=== PATIENT | female | born 1975 | race African-American/Black ===

== ENCOUNTER 2017-02-24 17:36 | Emergency (ER) | payer OTHER ==
[~2017-02-24] VITALS: Ht 172.7 cm; Wt 104.3 kg
[2017-02-24 18:01] VITALS: BP 140/83
[2017-02-24] MEDS ORDERED: HYDR-2758 PO (18:31)
[2017-02-24] MEDS ORDERED: [UNRECOGNIZED DRUG - CODE] PO (18:31)
--- NOTE | 2017-02-24 18:31 | PHYS DOC ---
Past History Past Medical History: No Pertinent History Past Surgical History: Other Smoking: Cigarettes, Greater than 1 pack/day Alcohol Use: None Drug Use: Amphetamine, Methamphetamine Adult General Chief Complaint Chief Complaint: DENTAL PROBLEM HPI HPI Pleasant 41-year-old female with a history of methamphetamine abuse now clean and sober who presents with dental issue that began 3 weeks ago. She had a tooth #7 in the front of her incisors traction to the enamel. She's had increasing pain and local tenderness to palpation with eating hot and cold foods. She was seen by another provider earlier this week placed on clindamycin. Unfortunately as she began to take that medication she began to break out in hives. So she stopped the medication. She was not able to follow- up with her dentist and she has continued to use her pain medication to treat her symptoms. She has no fevers, no neck pain, no neck swelling. Patient has no change in voice no problems with opening her jaw. Patient says the pain is typical for her and she has follow-up already scheduled for her dental issues she does smoke she does not use drugs anymore. Review of Systems Review of Systems Constitutional: Denies fever or chills [] Eyes: Denies change in visual acuity, redness, or eye pain [] HENT: Denies nasal congestion or sore throat [] Respiratory: Denies cough or shortness of breath [] Cardiovascular: No additional information not addressed in HPI [] GI: Denies abdominal pain, nausea, vomiting, bloody stools or diarrhea [] : Denies dysuria or hematuria [] Musculoskeletal: Denies back pain or joint pain [] Integument: Denies rash or skin lesions [] Neurologic: Denies headache, focal weakness or sensory changes [] Allergies Allergies Allergies Coded Allergies Type Severity Reaction Last Updated Verified Penicillins Allergy Intermediate RASH 02/24/17 Yes clindamycin Allergy Intermediate RASH 02/24/17 Yes tramadol Allergy Intermediate N/V 02/24/17 Yes Physical Exam Physical Exam Of the vital signs recorded on chart within normal limits. Constitutional: Well developed, well nourished, no acute distress, non-toxic appearance. [] HENT: Normocephalic, atraumatic, bilateral external ears normal, oropharynx moist, no oral exudates, nose normal. He is very poor dentition there are several teeth that are seen to be . There is a fracture through the enamel of tooth #7 with exposed dentin it seems to be necrotic. There is no soft tissue or along the dental line no gingivitis. No soft tissue swelling or buccal cellulitis. [] Neck: Normal range of motion, no tenderness, supple, no stridor. [] Cardiovascular:Heart rate regular rhythm, no murmur [] Lungs & Thorax: Bilateral breath sounds clear to auscultation [] Skin: Warm, dry, no erythema, no rash. [] Neurologic: Alert and oriented X 3, speech is normal Psychologic: sHe is somewhat anxious and uncomfortable as she is out of her medications. Current Patient Data Vital Signs Vital Signs Date Time Temp Pulse Resp B/P (MAP) Pulse Ox O2 Delivery O2 Flow Rate FiO2 02/24/17 18:01 99.1 77 20 99 Room Air EKG EKG [] Radiology/Procedures Radiology/Procedures [] Course & Med Decision Making Course & Med Decision Making Pertinent Labs and Imaging studies reviewed. (See chart for details) She presents with obvious dental caries needing complete antibiotic coverage as well as some pain medications to get to her dentist this Tuesday. She is allergic to penicillins and clindamycin we will attempt to treat her with erythromycin although that is not optimal coverage. [] Dragon Disclaimer Dragon Disclaimer This chart was dictated in whole or in part using Voice Recognition software in a busy, high-work load, and often noisy Emergency Department environment. It may contain unintended and wholly unrecognized errors or omissions. Departure Departure: Impression: Primary Impression: Dental caries Additional Impression: History of medication noncompliance Disposition: HOME, SELF-CARE Condition: STABLE Referrals: GAYLE ROUSSEAU (PCP) Patient Instructions: Dental Caries Additional Instructions: My discharge plan Follow up: In addition patient is asked to followup with their primary doctor, within a week for followup examination and to address patient's ongoing medical conditions. Patient is advised that in the Emergency Department primary complaints are addressed and only in light of known signs and symptoms. Patient should return immediately to the emergency department if new signs and symptoms develop or patient's condition worsens in any way. At time of discharge patient was in stable condition and had verbalized understanding of the discharge instructions. Scripts Hydrocodone Bit/Acetaminophen (HYDROCODONE-APAP 5-325 ) 1 Each Tablet 1 TAB PO PRN Q6HRS Y for PAIN for 5 Days, #10 TAB 0 Refills Prov: ANNAMARIE WALTER MD 02/24/17 Erythromycin Base (SHERRIE-TAB) 500 Mg Tablet. 500 MG PO QID for 7 Days, #28 TAB Prov: ANNAMARIE WALTER MD 02/24/17 Problem Qualifiers ANNAMARIE WALTER MD Feb 24, 2017 18:31
== END 2017-02-24 18:37 | disposition home or self-care (01) ==
LOC: ER 17:36
DX: K02.9 Dental caries, unspecified (principal); Z91.14 Patient's other noncompliance with medication regimen; F15.10 Other stimulant abuse, uncomplicated; F17.210 Nicotine dependence, cigarettes, uncomplicated; Z88.0 Allergy status to penicillin; Z88.1 Allergy status to other antibiotic agents; Z88.6 Allergy status to analgesic agent
CPT/HCPCS: 99283

== ENCOUNTER 2017-03-25 11:01 | Emergency (ER) | payer OTHER ==
[~2017-03-25] VITALS: Ht 172.7 cm; Wt 103.0 kg
[~2017-03-25 11:01] MED LIST: HYDR-2758 PO; [UNRECOGNIZED DRUG - CODE] PO
[2017-03-25] MEDS ORDERED: IV NORMAL SALINE 1,000ML 1,000 ML IV SCH (11:20)
[2017-03-25 12:14] LABS: BASO % 0 % (0-3); EOS # 0.1 x10^3/uL (0.0-0.7); EOS % 3 % (0-3); HEMATOCRIT 40.7 % (36.0-47.0); LYMPH # 1.3 x10^3/uL (1.0-4.8); LYMPH % 32 % (24-48); MEAN CORPUSCULAR HEMOGLOBIN 29 pg (25-35); MEAN CORPUSCULAR HGB CONC 34 g/dL (31-37); MEAN CORPUSCULAR VOLUME 86 fL (79-100); MONO # 0.3 x10^3/uL (0.0-1.1); MONO % 8 % (0-9); NEUT # 2.4 x10^3uL (1.8-7.7); NEUT % 57 % (31-73); PLATELET COUNT 228 x10^3/uL (140-400); RED BLOOD COUNT 4.75 x10^6/uL (3.50-5.40); RED CELL DISTRIBUTION WIDTH 14.6 % (11.5-14.5); WHITE BLOOD COUNT 4.2 x10^3/uL (4.0-11.0)
[2017-03-25 12:27] LABS: ALBUMIN 3.4 g/dL (3.4-5.0); CALCIUM 8.8 mg/dL (8.5-10.1); CREATININE 1.3 mg/dL (0.6-1.0); DIRECT BILIRUBIN 0.1 mg/dL (0.0-0.2); GFR 55.2; POTASSIUM 3.7 mmol/L (3.5-5.1); TOTAL BILIRUBIN 0.4 mg/dL (0.2-1.0); TOTAL PROTEIN 7.2 g/dL (6.4-8.2)
[2017-03-25] MEDS ORDERED: FAMO-63 PO (12:33)
[2017-03-25] MEDS ORDERED: ONDA4TAB7 PO (12:33)
--- NOTE | 2017-03-25 12:34 | PHYS DOC ---
Past History Past Medical History: Anxiety, Other Past Surgical History: Hysterectomy, Other Smoking: Cigarettes, Greater than 1 pack/day Alcohol Use: Occasionally Drug Use: None, Amphetamine, Methamphetamine Adult General Chief Complaint Chief Complaint: ABDOMINAL PAIN HPI HPI 41-year-old female presenting to the emergency department today with an epigastric abdominal pain and nonbilious nonbloody vomiting over the past week. She denies any bloody stools. She denies fevers or chills. The pain is mild intermittent nonradiating without alleviating factors. Review of systems is negative for diarrhea constipation. She denies chest pain or shortness of breath. All other review of systems is negative unless otherwise noted in history of present illness. ED course: 32-year-old female presenting with epigastric abdominal pain. Upon arrival the patient is afebrile with a normal heart rate. Abdominal exam shows Soft nontender abdomen without rebound tenderness or guarding present. Negative McBurneys point. Negative Fishman sign. No ecchymosis present. Otherwise the patient has an unremarkable examination. Blood work obtained. IV fluids administered. CT the abdomen pelvis obtained. Unfortunately the patient was unable to make a urine specimen for us after being here for 4 hours and 30 minutes. She was asked multiple times in the emergency department to provide urine however the patient refuses. We offered to provide straight catheterization to obtain urine specimen which the patient refuses. CT does show possible signs of cystitis which I explained to the patient. The patient states "I don't have a bladder infection because my pain is in my upper belly." I explained to her that this is not always the case. She demonstrates understanding however continues to refuse for urine to be obtained. It is probable that we asked for urine 10 times. The patient does not desire impaired treatment, nor do I believe that this would be in the patient's best interest. It would be better to have a urinalysis to identify whether the patient has a urinary tract infection. I informed the patient of their right to a medical screening exam and any treatment and/or stabilization that may be necessary regardless of their ability to pay. The patient appears to have intact insight, judgment, and reason. In my opinion, this patient has the capacity to make decisions. I felt that the patient had medical decision making capabilities. The patient presented with [abd pain] and I am concerned that this could be [a UTI]. My initial plan prior to the pt expressing the desire to leave was [ obtain a urine specimen]. I explained the risk of and disability to the patient in plain language which they were able to demonstrate in their own words verbal understanding. Specifically, I explained the risk of [infection, disability, ]. I discussed the limitations of the workup thus far included but were not limited to [not having urinary specimen]. The pt has verbalized understanding of my concerns. I offered alternatives to the therapy including providing straight catheterization. I recommended the pt follow up with her pcp. I explained that at any time if the patient changed their mind, we are always open and would be happy to have them back. The patient refused further care and then left against medical advice. Review of Systems Review of Systems SEE ABOVE. Current Medications Current Medications Current Medications Medications (Trade) Dose Ordered Sig/Dominik Start Time Stop Time Status Last Admin Dose Admin Sodium Chloride 1,000 ml @ 1,000 mls/hr Q1H 03/25/17 11:20 03/25/17 12:19 DC Allergies Allergies Allergies Coded Allergies Type Severity Reaction Last Updated Verified Penicillins Allergy Intermediate RASH 02/24/17 Yes clindamycin Allergy Intermediate RASH 02/24/17 Yes tramadol Allergy Intermediate N/V 02/24/17 Yes Physical Exam Physical Exam SEE ABOVE Constitutional: Well developed, well nourished, no acute distress, non-toxic appearance. [] HENT: Normocephalic, atraumatic, bilateral external ears normal, oropharynx moist, no oral exudates, nose normal. [] Eyes: PERRLA, EOMI, conjunctiva normal, no discharge. [] Neck: Normal range of motion, no tenderness, supple, no stridor. [] Cardiovascular:Heart rate regular rhythm, no murmur [] Lungs & Thorax: Bilateral breath sounds clear to auscultation [] Abdomen: Bowel sounds normal, soft, no tenderness, no masses, no pulsatile masses. [] Skin: Warm, dry, no erythema, no rash. [] Back: No tenderness, no CVA tenderness. [] Extremities: No tenderness, no cyanosis, no clubbing, ROM intact, no edema. [] Neurologic: Alert and oriented X 3, normal motor function, normal sensory function, no focal deficits noted. [] Psychologic: Affect normal, judgement normal, mood normal. [] Current Patient Data Vital Signs Vital Signs Date Time Temp Pulse Resp B/P (MAP) Pulse Ox O2 Delivery O2 Flow Rate FiO2 03/25/17 11:05 97.7 88 22 98 Room Air Lab Results Laboratory Tests Test 03/25/17 11:50 White Blood Count 4.2 x10^3/uL (4.0-11.0) Red Blood Count 4.75 x10^6/uL (3.50-5.40) Hemoglobin 14.0 g/dL (12.0-15.5) Hematocrit 40.7 % (36.0-47.0) Mean Corpuscular Volume 86 fL (79-100) Mean Corpuscular Hemoglobin 29 pg (25-35) Mean Corpuscular Hemoglobin Concent 34 g/dL (31-37) Red Cell Distribution Width 14.6 % (11.5-14.5) H Platelet Count 228 x10^3/uL (140-400) Neutrophils (%) (Auto) 57 % (31-73) Lymphocytes (%) (Auto) 32 % (24-48) Monocytes (%) (Auto) 8 % (0-9) Eosinophils (%) (Auto) 3 % (0-3) Basophils (%) (Auto) 0 % (0-3) Neutrophils # (Auto) 2.4 x10^3uL (1.8-7.7) Lymphocytes # (Auto) 1.3 x10^3/uL (1.0-4.8) Monocytes # (Auto) 0.3 x10^3/uL (0.0-1.1) Eosinophils # (Auto) 0.1 x10^3/uL (0.0-0.7) Basophils # (Auto) 0.0 x10^3/uL (0.0-0.2) EKG EKG [] Radiology/Procedures Radiology/Procedures [] Course & Med Decision Making Course & Med Decision Making Pertinent Labs and Imaging studies reviewed. (See chart for details) [] Dragon Disclaimer Dragon Disclaimer This electronic medical record was generated, in whole or in part, using a voice recognition dictation system. Departure Departure: Impression: Primary Impression: Epigastric abdominal pain Disposition: 01 HOME, SELF-CARE Condition: STABLE Referrals: GAYLE ROUSSEAU (PCP) Patient Instructions: Abdominal Pain Additional Instructions: Thank you for allowing us to participate in your care today. Followup with your primary care physician in 3 days if your symptoms do not improve. Call your Primary Doctor tomorrow and inform them of your visit today. If you do not have a primary care provider you can ask for a list of our primary care providers. Return to the emergency department you have any new or concerning findings. This should be evaluated by the primary care physician and any necessary consulting services for continued management within a few days after discharge. Return to emergency room if you have any new or concerning symptoms including but not limited to fever, chills, nausea, vomiting, intractable pain, any new rashes, chest pain, shortness of air, uncontrolled bleeding, difficulty breathing, and/or vision loss. Scripts Famotidine (PEPCID) 20 Mg Tablet 1 TAB PO BID, #10 TAB 0 Refills Prov: CRISTO DAVIS MD 03/25/17 Ondansetron Hcl (ZOFRAN) 4 Mg Tablet 1 TAB PO PRN Q6HRS Y for NAUSEA, #6 TAB Prov: CRISTO DAVIS MD 03/25/17 CRISTO DAVIS MD Mar 25, 2017 12:34
--- NOTE | 2017-03-25 12:34 | RAD ---
CT of the abdomen and pelvis without contrast 03/25/2017 Indication: Abdominal pain, epigastric pain. Diarrhea. Comparison study: CT of the abdomen and pelvis without contrast February 15, 2009 Technique: Multidetector CT imaging of the abdomen and pelvis was performed without the administration of IV contrast Findings: Liver, gallbladder, spleen, and right adrenal gland are unremarkable. There is a left adrenal adenoma similar to prior study. Kidneys are unremarkable in appearance. Pancreas is grossly normal in appearance. There is no evidence of bowel obstruction. No acute inflammatory change involving the bowel is identified. Evaluation of the bowel somewhat limited without IV or enteric contrast. The appendix is visualized and normal in appearance. Evaluation of the bladder is limited secondary to predominantly decompressed state. Bladder wall appears mildly thickened which is nonspecific. Correlate with clinical and/or laboratory evidence of cystitis. No evidence of acute osseous abnormality is seen. Impression: 1. Nonspecific mild bladder wall thickening. This could be due to partially decompressed state. Cystitis cannot be completely excluded. Close clinical findings. 2. No other acute intra-abdominal abnormality is seen. PQRS Compliance Statement: One or more of the following individualized dose reduction techniques were utilized for this examination: 1. Automated exposure control 2. Adjustment of the mA and/or kV according to patient size 3. Use of iterative reconstruction technique
[2017-03-25] MEDS ORDERED: LIDO:MAALOX 1:1 20 ML SINGLE DOSE PO ONE (14:15)
[2017-03-25] MEDS ORDERED: FAMOTIDINE 20 MG/2 ML VIAL IVP ONE (14:15)
[2017-03-25 15:35] VITALS: BP 124/78
== END 2017-03-25 15:49 | disposition home or self-care (01) ==
LOC: ER 11:01
DX: R10.13 Epigastric pain (principal); R11.10 Vomiting, unspecified; F41.9 Anxiety disorder, unspecified; F17.210 Nicotine dependence, cigarettes, uncomplicated; F15.10 Other stimulant abuse, uncomplicated; Z88.0 Allergy status to penicillin; Z90.710 Acquired absence of both cervix and uterus; Z88.1 Allergy status to other antibiotic agents; Z88.6 Allergy status to analgesic agent
CPT/HCPCS: 36415; 74176; 80048; 80076; 85025; 96361; 96374; 99285; S0028; J7030

== ENCOUNTER 2017-04-22 14:35 | Emergency (ER) | payer SELFPAY ==
[~2017-04-22] VITALS: Ht 172.7 cm; Wt 103.0 kg
[~2017-04-22 14:35] MED LIST changes: +FAMO-63 PO; +ONDA4TAB7 PO
[2017-04-22] MEDS ORDERED: TETRACAINE 0.5% OPHTH SOLUTION 4ML BOTTLE. OD ONE (15:30)
[2017-04-22] MEDS ORDERED: FLUORESCEIN 1MG EYE STRIP. OD ONE (15:30)
--- NOTE | 2017-04-22 16:11 | PHYS DOC ---
Past History Past Medical History: Anxiety, Other Past Surgical History: Hysterectomy, Other Smoking: Cigarettes, Greater than 1 pack/day Alcohol Use: Occasionally Drug Use: None, Amphetamine, Methamphetamine Adult General Chief Complaint Chief Complaint: EYE PROBLEMS HPI HPI Patient is a 42 year old female who presents with red eye. The patient reports 3 day history of burning pain to her right eye associated with red eye, clear drainage, light sensitivity. Vision is blurred in this eye. She denies foreign body or abrasion. Denies fevers/chills, headache. She does not wear contact lenses. She reports previous history of multiple episodes of similar symptoms, unsure of her diagnosis but she had to use steroid eye drops. She states that she is supposed to have workup for autoimmune disease because of this condition. She usually sees Dr. Islas in the eye clinic but could not afford to go there today because of her insurance status. Review of Systems Review of Systems Constitutional: Denies fever or chills Eyes: Reports painful red eye HENT: Denies nasal congestion or sore throat Respiratory: Denies cough Cardiovascular: Denies chest pain GI: Denies abdominal pain, nausea, vomiting Musculoskeletal: Denies back pain or joint pain Integument: Denies rash Neurologic: Denies headache All other systems were reviewed and found to be within normal limits, except as documented in this note. Current Medications Current Medications Current Medications Medications (Trade) Dose Ordered Sig/Dominik Start Time Stop Time Status Last Admin Dose Admin Acetaminophen/ Hydrocodone Bitart (Lortab 5/325) 1 tab 1X ONCE 04/22/17 16:15 04/22/17 16:16 Fluorescein Sodium (Ful-Talya 1mg) 1 strip 1X ONCE 04/22/17 15:30 04/22/17 15:31 DC 04/22/17 15:30 1 STRIP Prednisolone Acetate (Pred Forte) 1 drop 1X ONCE 04/22/17 16:15 04/22/17 16:16 Tetracaine HCl (Tetracaine) 1 drop 1X ONCE 04/22/17 15:30 04/22/17 15:31 DC 04/22/17 15:30 1 DROP Allergies Allergies Allergies Coded Allergies Type Severity Reaction Last Updated Verified Penicillins Allergy Intermediate RASH 02/24/17 Yes clindamycin Allergy Intermediate RASH 02/24/17 Yes tramadol Allergy Intermediate N/V 02/24/17 Yes Physical Exam Physical Exam Constitutional: obese, tearful, non-toxic appearance. HENT: Normocephalic, atraumatic, bilateral external ears normal, oropharynx moist, nose normal. Eyes: PERRLA, EOMI, no pain with eye movement. pain in right eye with bilateral pupil exam. diffusely injected conjunctiva. no proptosis, periorbital cellulitis. no evidence of corneal abrasion with fluorescein stain , negative Lisandro sign. patient poorly tolerated slit lamp exam, unable to visualize cell/flare. IOP was 15 mmHg in the right eye. Cardiovascular: no edema. Lungs & Thorax: no respiratory distress. Abdomen: nondistended. Skin: Warm, dry, no erythema, no rash. Extremities: No deformity Neurologic: Alert and oriented X 3 EKG EKG [] Radiology/Procedures Radiology/Procedures [] Course & Med Decision Making Course & Med Decision Making Pertinent Labs and Imaging studies reviewed. (See chart for details) The patient presents with red painful eye. Gave norco for pain as she was very tearful & uncomfortable. Applied tetracaine. Poorly tolerated slit lamp exam, really no additional information obtained. Fluorescein stain showed no corneal abrasion. IOP was 15 mm Hg. She refused to complete visual acuities exam. Discussed with Dr. Islas who was able to reference her notes from past visits. She has previously been treated for scleritis/episcleritis, good response with prednisolone. Today this could be iritis but scleritis also on differential, he recommends prednisolone acetate eye drops 4 times daily for 1 week, then follow up in eye clinic. Come back (or, ideally, see opthalmology emergently) for loss of vision, symptoms of orbital cellulitis, otherwise worsening condition. Discharged home in stable condition. [] Dragon Disclaimer Dragon Disclaimer This electronic medical record was generated, in whole or in part, using a voice recognition dictation system. Departure Departure: Impression: Primary Impression: Scleritis and episcleritis Disposition: 01 HOME, SELF-CARE Condition: STABLE Referrals: GAYLE ROUSSEAU (PCP) JOSE ISLAS DO Patient Instructions: Eye - Scleritis and Episcleritis Additional Instructions: You were seen in the emergency department today for red eye. You are being treated for scleritis/episcleritis which you have had previously. Please use the eye drops four times daily for 1 week. You can take ibuprofen for pain & norco for severe pain. no drinking alcohol or driving while taking norco. Follow up with your eye doctor in 1 week. Follow up in the eye clinic sooner for loss of vision, worsening or not improving in 2-3 days, any otherwise worsening condition. Scripts Hydrocodone Bit/Acetaminophen (NORCO 5-325 TABLET) 1 Each Tablet 1-2 TAB PO Q4-6HRS Y for SEVERE PAIN, #10 TAB Prov: KAYLEE ESTES MD 04/22/17 Problem Qualifiers Primary Impression: Scleritis and episcleritis Laterality: right Qualified Codes: H15.001 - Unspecified scleritis, right eye; H15.101 - Unspecified episcleritis, right eye KAYLEE ESTES MD Apr 22, 2017 16:11
[2017-04-22] MEDS ORDERED: HYDR-971 PO (16:12)
[2017-04-22] MEDS ORDERED: prednisoLONE ACETATE 1% OPHTH SUSPENSION 5ML BOTTLE. OD ONE (16:15)
[2017-04-22] MEDS ORDERED: HYDROcodone/APAP 5/325MG 1 TAB TABLET PO ONE (16:15)
[2017-04-22 17:20] VITALS: BP 139/57
== END 2017-04-22 17:20 | disposition home or self-care (01) ==
LOC: ER 14:35
DX: H15.001 Unspecified scleritis, right eye (principal); H15.101 Unspecified episcleritis, right eye; F17.210 Nicotine dependence, cigarettes, uncomplicated; F41.9 Anxiety disorder, unspecified; F15.10 Other stimulant abuse, uncomplicated; Z88.0 Allergy status to penicillin; Z88.1 Allergy status to other antibiotic agents; Z88.2 Allergy status to sulfonamides
CPT/HCPCS: 99284

== ENCOUNTER 2017-05-30 12:21 | Emergency (ER) | payer OTHER ==
[~2017-05-30] VITALS: Ht 172.7 cm; Wt 90.7 kg
[~2017-05-30 12:21] MED LIST changes: +HYDR-971 PO
[2017-05-30 12:59] VITALS: BP 132/77
[2017-05-30] MEDS ORDERED: NAPR-683 PO (14:15)
[2017-05-30] MEDS ORDERED: SULF1TAB24 PO (14:15)
[2017-05-30] MEDS ORDERED: KETOROLAC 60 MG/2 ML VIAL. IM ONE (14:15)
--- NOTE | 2017-05-30 14:16 | PHYS DOC ---
Past History Past Medical History: Depression Past Surgical History: Hysterectomy Smoking: Cigarettes, Greater than 1 pack/day Alcohol Use: Occasionally Drug Use: None Adult General Chief Complaint Chief Complaint: DENTAL PROBLEM HPI HPI 42-year-old smoking female patient complaining of tooth ache for one month and abscess for 2 weeks and states she doesn't have a dentist and her pain getting worse. Patient denies fever and chills, nausea and vomiting. Patient was seen in this emergency room 2 weeks ago with the same problem. Review of Systems Review of Systems Constitutional: Denies fever or chills [] Eyes: Denies change in visual acuity, redness, or eye pain [] HENT: Denies nasal congestion or sore throat, reports toothache [] Respiratory: Denies cough or shortness of breath [] Cardiovascular: No additional information not addressed in HPI [] GI: Denies abdominal pain, nausea, vomiting, bloody stools or diarrhea [] : Denies dysuria or hematuria [] Musculoskeletal: Denies back pain or joint pain [] Integument: Denies rash or skin lesions [] Neurologic: Denies headache, focal weakness or sensory changes [] Endocrine: Denies polyuria or polydipsia [] All other systems were reviewed and found to be within normal limits, except as documented in this note. Allergies Allergies Allergies Coded Allergies Type Severity Reaction Last Updated Verified Penicillins Allergy Intermediate RASH 02/24/17 Yes clindamycin Allergy Intermediate RASH 02/24/17 Yes tramadol Allergy Intermediate N/V 02/24/17 Yes Physical Exam Physical Exam Constitutional: mild distress, non-toxic appearance, anxious. [] HENT: Normocephalic, atraumatic, bilateral external ears normal, oropharynx moist, no oral exudates, nose normal, fracture right upper lateral incisor tooth with abscess and tenderness. [] Eyes: PERRLA, EOMI, conjunctiva normal, no discharge. [] Neck: Normal range of motion, no tenderness, supple, no stridor. [] Cardiovascular:Heart rate regular rhythm, no murmur [] Lungs & Thorax: Bilateral breath sounds clear to auscultation [] Neurologic: Alert and oriented X 3, normal motor function, normal sensory function, no focal deficits noted. [] Psychologic: Anxious Current Patient Data Vital Signs Vital Signs Date Time Temp Pulse Resp B/P (MAP) Pulse Ox O2 Delivery O2 Flow Rate FiO2 1/29/18 12:59 97.8 58 20 97 Room Air EKG EKG [] Radiology/Procedures Radiology/Procedures [] Course & Med Decision Making Course & Med Decision Making Evaluation of patient in ER showed 42-year-old smoker patient frequent emergency room visits complaining of dental pain for 1 month and abscess for 2 weeks. Patient was very anxious in ER. Patient informed that she needs to quit smoking and follow with her dentist. Prescription for Vicodin and Naprosyn was given. Dragon Disclaimer Dragon Disclaimer This electronic medical record was generated, in whole or in part, using a voice recognition dictation system. Departure Departure: Impression: Primary Impression: Dental abscess Additional Impressions: Tobacco abuse Tobacco abuse counseling Disposition: HOME, SELF-CARE (At 1425) Condition: STABLE Referrals: GAYLE ROUSSEAU (PCP) Patient Instructions: Dental Abscess, Smoking Cessation Additional Instructions: Quit smoking Follow-up with her dentist in 2 or 3 days Scripts Naproxen (NAPROSYN) 500 Mg Tablet 1 TAB PO BID, #14 TAB 2 Refills Prov: JANETH ALCARAZ MD 05/30/17 Sulfamethoxazole/Trimethoprim (BACTRIM DS TABLET) 1 Each Tablet 1 TAB PO BID, #14 TAB Prov: JANETH ALCARAZ MD 05/30/17 Problem Qualifiers JANETH ALCARAZ MD May 30, 2017 14:16
[2017-05-30] MEDS ORDERED: NAPROXEN 500 MG TABLET PO ONE (14:45)
== END 2017-05-30 14:50 | disposition home or self-care (01) ==
LOC: ER 12:21
DX: K04.7 Periapical abscess without sinus (principal); F32.9 Major depressive disorder, single episode, unspecified; F17.210 Nicotine dependence, cigarettes, uncomplicated; Z71.6 Tobacco abuse counseling; Z88.0 Allergy status to penicillin; Z88.1 Allergy status to other antibiotic agents; Z88.6 Allergy status to analgesic agent
CPT/HCPCS: 99283